=== PATIENT | female | born 2000 | race Hispanic/Latino ===

== ENCOUNTER 2020-11-13 20:38 | Observation (INO) | payer BC, OTHER ==
[~2020-11-13] VITALS: Ht 157.5 cm; Wt 88.5 kg
[2020-11-13 21:24] LABS: APPEARANCE,URINE Clear (CLEAR); BILIRUBIN,URINE Negative (NEGATIVE); COLOR,URINE Yellow (YELLOW); GLUCOSE, URINE (UA) Negative (NEGATIVE); KETONES,URINE 15 mg/dL (NEGATIVE); LEUKOCYTE ESTERASE ,URINE Negative (NEGATIVE); NITRATE,URINE Negative (NEGATIVE); OCCULT BLOOD,URINE Negative (NEGATIVE); PH,URINE 5.5 (5.0-8.0); PROTEIN,URINE Negative (NEGATIVE); UROBILINOGEN,URINE 0.2 mg/dL (0.2-1.0)
[2020-11-13] MEDS ORDERED: LACTATED RINGERS 1000ML 1,000 ML IV SCH (22:00)
[2020-11-13] MEDS ORDERED: LACTATED RINGERS 1000ML IV SCH (22:00)
[2020-11-13] MEDS ORDERED: TERBUTALINE SULFATE VIAL 1MG/ML SQ ONE (22:06)
[2020-11-13] MEDS: TERBUTALINE SULFATE VIAL 1MG/ML SQ PRN ×2 (22:25→23:27)
[2020-11-13 23:26] LABS: AMPHET/METH SCREEN,URINE NEGATIVE (NEGATIVE); BARBITURATE SCREEN, URINE NEGATIVE (NEGATIVE); BENZODIAZEPINES SCREEN,URINE NEGATIVE (NEGATIVE); CANNABINOID SCREEN,URINE NEGATIVE (NEGATIVE); COCAINE SCREEN,URINE NEGATIVE (NEGATIVE); OPIATE SCREEN,URINE NEGATIVE (NEGATIVE); PHENCYCLIDINE SCREEN,URINE NEGATIVE (NEGATIVE)
[2020-11-14 00:33] VITALS: BP 133/61
== END 2020-11-14 01:30 | disposition home or self-care (01) ==
LOC: EDH 20:38 → LDH 21:18
PROVIDERS: ADMIT Obstetrics & Gynecology; ATTEND Obstetrics & Gynecology
DX: O42.913 Preterm premature rupture of membranes, unspecified as to length of time between rupture and onset of labor, third trimester (principal); O26.893 Other specified pregnancy related conditions, third trimester; N89.8 Other specified noninflammatory disorders of vagina; Z3A.34 34 weeks gestation of pregnancy; Z79.899 Other long term (current) drug therapy
CPT/HCPCS: 59025 ×2; 80305; 81003; 82120; 96360; 96361 ×2; 96372 ×2; G0378 ×4; G0379; J3105